=== PATIENT | male | born 1965 | race African-American/Black ===

== ENCOUNTER 2018-11-29 14:02 | Inpatient (IN) | payer OTHER ==
[2018-11-29 19:04] VITALS: BMI 33.2
--- NOTE | 2018-11-29 19:26 | HP ---
CIWA Score Nausea/Vomitin-No Nausea/No Vomiting Muscle Tremors: None Anxiety: 0-No Anxiety, at Ease Agitation: 0-Normal Activity Paroxysmal Sweats: No Perspiration Orientation: 0-Oriented Tacttile Disturbances: 0-None Auditory Disturbances: 0-None Visual Disturbances: 0-None Headache: 0-None Present CIWA-Ar Total Score: 0 - Admission Criteria OASAS Guidelines: Admission for Medically Managed Detox: Requires at least one of the followin. CIWA greater than 12 2. Seizures within the past 24 hours 3. Delirium tremens within the past 24 hours 4. Hallucinations within the past 24 hours 5. Acute intervention needed for co occurring medical disorder 6. Acute intervention needed for co occurring psychiatric disorder 7. Severe withdrawal that cannot be handled at a lower level of care (continued vomiting, continued diarrhea, abnormal vital signs) requiring intravenous medication and/or fluids 8. Admission [facility] Allergies/Adverse Reactions: Allergies Allergy/AdvReac Type Severity Reaction Status Date / Time No Known Allergies Allergy Verified 11/29/18 20:53 History of Present Illness: pt here requesting detox from crack cocaine , etoh , heroin . etoh : 2 nips/day denies tremors, seizures, blackouts , currently asymptomatic heroin : IVDU 10 bags/day in [facility] , legs, neck , feet , needles from the pharmacy , denies sharing on a regular basis " once or twice " , + re-using , abscess in the past , OD x 4 , Narcan by em[facility] , most recently summer 2017 . heroin since age 32 , in [facility] since 2 years ago [facility] , currently on 160 mg q d , latest taken yesterday . cocaine : 3 x20 /day denies ivdu currently , tried in the past tobacco : 1 ppd x 40 years Reference #: [id number] There are no results for the search terms that you entered. 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 PSHx : denies PSych : SAD , bipolar d/o , previously on Depakote and Risperidone SHx : homeless , past drug-related charges 17.5 years , was on parole , has court 01/17/19 driving w/ suspended license. Exam Limitations: No Limitations - Ebola screening Have you traveled outside of the country in the last 21 days: No Have you had contact with anyone from an Ebola affected area: No Have you been sick,other than usual withdrawal symptoms: No Do you have a fever: No - Review of Systems Constitutional: No Symptoms Reported EENT: reports: Other (myopia , does not have glasses , missing teeth upper) Respiratory: reports: No Symptoms reported, Other (states uses nasal spray) Cardiac: reports: No Symptoms Reported GI: reports: No Symptoms Reported : reports: No Symptoms Reported Musculoskeletal: reports: Back Pain, Joint Pain, Other (chronic neck pain) Integumentary: reports: See HPI Neuro: reports: No Symptoms reported Endocrine: reports: No Symptoms Reported Psychiatric: reports: Orientated x3 Patient History - Smoking Cessation Smoking history: Current every day smoker Have you smoked in the past 12 months: Yes Aproximately how many cigarettes per day: 20 Hx Chewing Tobacco Use: No Initiated information on smoking cessation: No - Substances Abused Heroin Route: Injection Frequency: Daily Amount used: 10 BAGS Age of first use: 32 Date of Last Use: 11/27/18 Crack Route: Smoking Frequency: Daily Amount used: Age of first use: 27 Date of Last Use: 11/27/18 Family Disease History - Family Disease History Family Disease History: Diabetes: Father (d. 2006 ), Mother (breast CA in remission ), CA: Mother, Other: Brother (3, A & W ), Sister (5 , A & W ) Admission Physical Exam [facility] - Vital Signs Vital Signs: Vital Signs - 24 hr 11/29/18 18:59 Temperature 98.6 F Pulse Rate 67 Respiratory 18 Rate Blood Pressure 145/89 - Physical General Appearance: Yes: No Apparent Distress, Disheveled HEENTM: Yes: EOMI, Hearing grossly Normal, Normocephalic, Normal Voice, Other ( missing upper teeth, poor dentition .) Respiratory: Yes: Chest Non-Tender, Lungs Clear, Normal Breath Sounds Neck: Yes: No masses,lesions,Nodules, Trachea in good position Cardiology: Yes: Regular Rhythm, Regular Rate, S1, S2 Abdominal: Yes: Normal Bowel Sounds, Non Tender, Soft, Protuberent Genitourinary: Yes: Within Normal Limits Back: Yes: Muscle Spasm Musculoskeletal: Yes: Joint Stiffness (sergei knees , LLE shoulder weakness 2/2 CVA), Other (R LE edema) Neurological: Yes: Fully Oriented, Motor Strength 5/5, Normal Mood/Affect Integumentary: Yes: Normal Color - Diagnostic (1) Opioid dependence on agonist therapy Current Visit: Yes Status: Acute (2) Cocaine dependence Current Visit: Yes Status: Chronic Qualifiers: Substance use status: uncomplicated Qualified Code(s): F14.20 - Cocaine dependence, uncomplicated (3) Tobacco dependence Current Visit: Yes Status: Acute (4) Old cerebrovascular accident (CVA) without late effect Current Visit: Yes Status: Acute (5) Pedal edema Current Visit: Yes Status: Acute BHS Breath Alcohol Content Breath Alcohol Content: 0 Urine Drug Screen - Results Drug Screen Negative: No Urine Drug Screen Results: JOANNA-Cocaine, OPI-Opiates, MTD-Methadone Inpatient Rehab Admission - Rehab Decision to Admit Inpatient rehab admission?: Yes - Initial Determination Are CD services needed?: Yes Free of communicable disease: Yes Not in need of hospitalization: Yes - Rehab Admission Criteria Previous failed treatment: Yes Poor recovery environment: Yes Comorbidities: Yes Lacks judgement: Yes Patient is meeting Inpatient Rehab admission criteria:: Yes
[2018-11-29] MEDS ORDERED: hydrOXYzine PAMOATE 25 MG CAPSULE (FP) PO PRN (19:44)
[2018-11-29] MEDS ORDERED: ACETAMINOPHEN 325 MG TABLET (FP) PO PRN (19:44)
[2018-11-29] MEDS ORDERED: guaiFENesin/D-METHORPHAN HB 10 ML UNIT-DOSE CUPS PO PRN (19:44)
[2018-11-29] MEDS ORDERED: MAGNESIUM HYDROX 2400MG/30ML ORAL SUSPENSION 30 ML CUP PO PRN (19:44)
[2018-11-29] MEDS ORDERED: MAGNESIUM CITRATE 300 ML BOTTLE PO PRN (19:44)
[2018-11-29] MEDS ORDERED: MAG HYDROX/AL HYDROX/SIMETH 30 ML UNIT-DOSE CUP PO PRN (19:44)
[2018-11-29] MEDS ORDERED: ATORVASTATIN CA 40 MG TABLET (FP) ONE (20:35)
[2018-11-29] MEDS ORDERED: RALTEGRAVIR POTASSIUM 400 MG TAB PO SCH (22:00)
[2018-11-29] MEDS: RIVAROXABAN 20 MG TABLET PO SCH (23:44)
[2018-11-29] MEDS: GABAPENTIN 400 MG CAPSULE (FP) PO SCH (23:44)
[2018-11-29] MEDS: THIAMINE HCL 100 MG TABLET (FP) PO SCH (23:44)
[2018-11-29] MEDS: NAPROXEN 375 MG TABLET (FP) PO SCH (23:45)
[2018-11-29] MEDS: RALTEGRAVIR POTASSIUM 400 MG TAB PO SCH (23:46)
[2018-11-29] MEDS: ATORVASTATIN CA 80 MG TABLET (FP) PO SCH (23:46)
[2018-11-29] MEDS ORDERED: TUBERCULIN PPD 5 TU/0.1ML VIAL ID ONE (23:55)
[2018-11-30] MEDS: GABAPENTIN 400 MG CAPSULE (FP) PO SCH ×3 (06:38→21:08)
[2018-11-30] MEDS ORDERED: METHADONE HCL 40 MG DISPERSABLE TABLET PO ONE (09:29)
[2018-11-30] MEDS ORDERED: PATIENT'S OWN MEDICATION (NON-FORMULARY) (Meloxicam [Meloxicam] 15 MG) PO SCH (10:00)
[2018-11-30 10:14] LABS: HEMATOCRIT 40.1 % (35.4-49); HEMOGLOBIN 13.4 GM/dL (11.7-16.9); MCH 30.7 pg (25.7-33.7); MCHC 33.3 g/dl (32.0-35.9); MEAN PLT VOLUME 8.7 fl (7.5-11.1); PLATELET COUNT 216 K/MM3 (134-434); RBC 4.36 M/mm3 (4.00-5.60); RDW 14.3 % (11.9-15.9); WHITE BLOOD COUNT 5.6 K/mm3 (4.0-10.0)
[2018-11-30] MEDS: P-EPHED 60MG/TRIPROLIDI 2.5MG TABLET PO PRN ×2 (10:44→21:10)
[2018-11-30] MEDS: PRENATAL VITAMINS W/ FOLIC ACID TABLET (FP) PO SCH (10:44)
[2018-11-30] MEDS: NAPROXEN 375 MG TABLET (FP) PO SCH ×2 (10:44→21:09)
[2018-11-30] MEDS: FUROSEMIDE 40 MG TABLET (FP) PO SCH (10:45)
[2018-11-30] MEDS: RALTEGRAVIR POTASSIUM 400 MG TAB PO SCH ×2 (10:47→21:09)
[2018-11-30 12:10] LABS: ALBUMIN 3.3 g/dl (3.4-5.0); ALK PHOS 132 U/L (45-117); ANION GAP 9 MMOL/L (8-16); BILIRUBIN,TOTAL 0.4 mg/dL (0.2-1); BLOOD UREA NITROGEN 11 mg/dL (7-18); CALCIUM 8.7 mg/dL (8.5-10.1); CHLORIDE 108 mmol/L (98-107); CO2 29 mmol/L (21-32); CREATININE 0.9 mg/dL (0.55-1.3); GLUCOSE,RANDOM 79 mg/dL (74-106); POTASSIUM 3.4 mmol/L (3.5-5.1); SGOT/AST 29 U/L (15-37); SGPT/ALT 22 U/L (13-61); SODIUM 145 mmol/L (136-145); TOT PROT 6.9 g/dl (6.4-8.2)
[2018-11-30] MEDS: EMTRICITABINE 200MG/TENOFOVIR 300MG PO SCH (12:40)
[2018-11-30] MEDS: RIVAROXABAN 20 MG TABLET PO SCH (18:18)
[2018-11-30 20:02] LABS: URINE APPEARANCE TURBID; URINE BILIRUBIN NEGATIVE (<2.0 mg/dL); URINE COLOR AMBER; URINE GLUCOSE (UA) NEGATIVE (NEGATIVE); URINE KETONE NEGATIVE (NEGATIVE); URINE LEUK ESTERASE NEGATIVE (NEGATIVE); URINE NITRITE NEGATIVE (NEGATIVE); URINE PROTEIN 1+ (NEGATIVE); URINE UROBILINOGEN 4.0 E.U/dl mg/dL (0.2-1.0)
[2018-11-30 20:11] LABS: AMORP URATES 4+ /hpf (NONE SEEN)
[2018-11-30 20:13] LABS: EPI CELLS RARE /HPF (FEW); URINE BACTERIA RARE /hpf (NONE SEEN); URINE MUCUS FEW
[2018-11-30] MEDS ORDERED: ATORVASTATIN CA 40 MG TABLET (FP) ONE (20:16)
[2018-11-30] MEDS: ATORVASTATIN CA 80 MG TABLET (FP) PO SCH (21:09)
[2018-11-30] MEDS: THIAMINE HCL 100 MG TABLET (FP) PO SCH (21:09)
[2018-12-01] MEDS: GABAPENTIN 400 MG CAPSULE (FP) PO SCH ×3 (06:48→21:06)
[2018-12-01] MEDS: METHADONE HCL 40 MG DISPERSABLE TABLET PO SCH (06:49)
[2018-12-01] MEDS: NAPROXEN 375 MG TABLET (FP) PO SCH ×2 (09:28→21:07)
[2018-12-01] MEDS: FUROSEMIDE 40 MG TABLET (FP) PO SCH (09:28)
[2018-12-01] MEDS: RALTEGRAVIR POTASSIUM 400 MG TAB PO SCH ×2 (09:28→21:06)
[2018-12-01] MEDS: EMTRICITABINE 200MG/TENOFOVIR 300MG PO SCH (09:28)
[2018-12-01] MEDS: PRENATAL VITAMINS W/ FOLIC ACID TABLET (FP) PO SCH (09:28)
--- NOTE | 2018-12-01 12:50 | PN ---
[facility] Progress Note Note: PT C/O HX CHRONIC PAIN-HANDS/LOWER BACK/HIPS/NECK. REPORTS USES PAIN PATCH AND HAS IT IN HIS PROPERTY IN [place]. WANTS TO CONTINUE IT HERE. PT USES WHEELCHAIR FOR AMBULATION. PT REPORTS HE HAS A PMD DR. MONROE CAMPOS(?SPEANGELICA) AT [facility] IN [place], [place] FOR MEDICAL MANAGEMENT. Vital Signs (72 hours) 11/29/18 11/29/18 11/30/18 18:59 23:33 00:30 Temperature 98.6 F 98.4 F Pulse Rate 67 74 Respiratory 18 18 20 Rate Blood Pressure 145/89 137/76 11/30/18 11/30/18 11/30/18 03:30 06:46 07:29 Temperature 97.4 F L 97.4 F L Pulse Rate 64 64 Respiratory 18 18 18 Rate Blood Pressure 143/77 143/77 11/30/18 12/01/18 12/01/18 10:00 00:30 03:30 Temperature Pulse Rate 72 Respiratory 18 18 Rate Blood Pressure 133/75 12/01/18 12/01/18 06:57 10:00 Temperature 97.3 F L Pulse Rate 75 71 Respiratory 20 Rate Blood Pressure 145/87 115/68 Laboratory Tests 11/30/18 11/30/18 11/30/18 08:30 08:30 08:30 WBC 5.6 RBC 4.36 Hgb 13.4 Hct 40.1 MCV 92.0 MCH 30.7 MCHC 33.3 RDW 14.3 Plt Count 216 MPV 8.7 Sodium 145 Potassium 3.4 L Chloride 108 H Carbon Dioxide 29 Anion Gap 9 BUN 11 Creatinine 0.9 Creat Clearance w eGFR > 60 Random Glucose 79 Calcium 8.7 Total Bilirubin 0.4 AST 29 ALT 22 Alkaline Phosphatase 132 H Total Protein 6.9 Albumin 3.3 L Urine Color Urine Appearance Urine pH Ur Specific [place] Urine Protein Urine Glucose (UA) Urine Ketones Urine Blood Urine Nitrite Urine Bilirubin Urine Urobilinogen Ur Leukocyte Esterase Urine WBC (Auto) Urine RBC (Auto) Ur Epithelial Cells Amorphous Urates Urine Bacteria Urine Mucus RPR Titer Nonreactive 11/30/18 15:40 WBC RBC Hgb Hct MCV MCH MCHC RDW Plt Count MPV Sodium Potassium Chloride Carbon Dioxide Anion Gap BUN Creatinine Creat Clearance w eGFR Random Glucose Calcium Total Bilirubin AST ALT Alkaline Phosphatase Total Protein Albumin Urine Color [place] Urine Appearance Turbid Urine pH 6.0 Ur Specific [place] 1.033 Urine Protein 1+ H Urine Glucose (UA) Negative Urine Ketones Negative Urine Blood Negative Urine Nitrite Negative Urine Bilirubin Negative Urine Urobilinogen 4.0 e.u/dl Ur Leukocyte Esterase Negative Urine WBC (Auto) None Urine RBC (Auto) None Ur Epithelial Cells Rare Amorphous Urates 4+ Urine Bacteria Rare Urine Mucus Few RPR Titer BORDERLINE HYPOKALEMIA K+ =3.4 ELEVATED ALK PHOS = 132 NAD PLAN:LIDOCAINE PATCH 5% APPLY DIRECTED. REPEAT CMP IN A.M
[2018-12-01] MEDS: LIDOCAINE 5% TOPICAL PATCH TP SCH (13:03)
[2018-12-01] MEDS: RIVAROXABAN 20 MG TABLET PO SCH (18:13)
[2018-12-01] MEDS: ATORVASTATIN CA 80 MG TABLET (FP) PO SCH (21:06)
[2018-12-01] MEDS: THIAMINE HCL 100 MG TABLET (FP) PO SCH (21:06)
[2018-12-01] MEDS: LIDOCAINE PATCH REMOVAL MC SCH (21:09)
[2018-12-02] MEDS: METHADONE HCL 40 MG DISPERSABLE TABLET PO SCH (06:42)
[2018-12-02] MEDS: GABAPENTIN 400 MG CAPSULE (FP) PO SCH ×3 (06:42→22:55)
[2018-12-02] MEDS: NAPROXEN 375 MG TABLET (FP) PO SCH ×2 (09:35→22:55)
[2018-12-02] MEDS: RALTEGRAVIR POTASSIUM 400 MG TAB PO SCH ×2 (09:36→22:56)
[2018-12-02] MEDS: FUROSEMIDE 40 MG TABLET (FP) PO SCH (09:36)
[2018-12-02] MEDS: PRENATAL VITAMINS W/ FOLIC ACID TABLET (FP) PO SCH (09:36)
[2018-12-02] MEDS: EMTRICITABINE 200MG/TENOFOVIR 300MG PO SCH (09:36)
[2018-12-02] MEDS: LIDOCAINE 5% TOPICAL PATCH TP SCH (09:37)
[2018-12-02 12:08] LABS: ALBUMIN 3.4 g/dl (3.4-5.0); ALK PHOS 128 U/L (45-117); ANION GAP 4 MMOL/L (8-16); BILIRUBIN,TOTAL 0.3 mg/dL (0.2-1); BLOOD UREA NITROGEN 19 mg/dL (7-18); CALCIUM 8.5 mg/dL (8.5-10.1); CHLORIDE 110 mmol/L (98-107); CO2 32 mmol/L (21-32); CREATININE 0.9 mg/dL (0.55-1.3); GLUCOSE,RANDOM 112 mg/dL (74-106); POTASSIUM 4.3 mmol/L (3.5-5.1); SGOT/AST 26 U/L (15-37); SGPT/ALT 20 U/L (13-61); SODIUM 146 mmol/L (136-145); TOT PROT 6.8 g/dl (6.4-8.2)
[2018-12-02] MEDS: RIVAROXABAN 20 MG TABLET PO SCH (17:58)
[2018-12-02] MEDS: P-EPHED 60MG/TRIPROLIDI 2.5MG TABLET PO PRN (22:54)
[2018-12-02] MEDS: MENTHOL/PHENOL 1 EACH UD MM PRN (22:54)
[2018-12-02] MEDS: THIAMINE HCL 100 MG TABLET (FP) PO SCH (22:55)
[2018-12-02] MEDS: LIDOCAINE PATCH REMOVAL MC SCH (22:55)
[2018-12-02] MEDS: ATORVASTATIN CA 80 MG TABLET (FP) PO SCH (22:55)
[2018-12-03] MEDS: METHADONE HCL 40 MG DISPERSABLE TABLET PO SCH (06:53)
[2018-12-03] MEDS: GABAPENTIN 400 MG CAPSULE (FP) PO SCH ×3 (06:54→21:01)
[2018-12-03] MEDS: FUROSEMIDE 40 MG TABLET (FP) PO SCH (09:19)
[2018-12-03] MEDS: RALTEGRAVIR POTASSIUM 400 MG TAB PO SCH ×2 (09:19→21:01)
[2018-12-03] MEDS: NAPROXEN 375 MG TABLET (FP) PO SCH ×2 (09:19→21:01)
[2018-12-03] MEDS: PRENATAL VITAMINS W/ FOLIC ACID TABLET (FP) PO SCH (09:19)
[2018-12-03] MEDS: LIDOCAINE 5% TOPICAL PATCH TP SCH (09:20)
[2018-12-03] MEDS: EMTRICITABINE 200MG/TENOFOVIR 300MG PO SCH (09:20)
[2018-12-03] MEDS: RIVAROXABAN 20 MG TABLET PO SCH (17:58)
[2018-12-03] MEDS: ATORVASTATIN CA 80 MG TABLET (FP) PO SCH (21:00)
[2018-12-03] MEDS: THIAMINE HCL 100 MG TABLET (FP) PO SCH (21:01)
[2018-12-03] MEDS: LIDOCAINE PATCH REMOVAL MC SCH (21:02)
[2018-12-03] MEDS: LOPERAMIDE HCL 2 MG CAPSULE PO PRN (23:38)
[2018-12-04] MEDS: LOPERAMIDE HCL 2 MG CAPSULE PO PRN ×2 (06:32→21:48)
[2018-12-04] MEDS: METHADONE HCL 40 MG DISPERSABLE TABLET PO SCH (06:32)
[2018-12-04] MEDS: GABAPENTIN 400 MG CAPSULE (FP) PO SCH ×3 (06:32→21:44)
[2018-12-04] MEDS: FUROSEMIDE 40 MG TABLET (FP) PO SCH (09:24)
[2018-12-04] MEDS: PRENATAL VITAMINS W/ FOLIC ACID TABLET (FP) PO SCH (09:24)
[2018-12-04] MEDS: RALTEGRAVIR POTASSIUM 400 MG TAB PO SCH ×2 (09:24→21:44)
[2018-12-04] MEDS: NAPROXEN 375 MG TABLET (FP) PO SCH ×2 (09:24→21:46)
[2018-12-04] MEDS: LIDOCAINE 5% TOPICAL PATCH TP SCH (09:25)
[2018-12-04] MEDS: EMTRICITABINE 200MG/TENOFOVIR 300MG PO SCH (09:25)
[2018-12-04] MEDS: RIVAROXABAN 20 MG TABLET PO SCH (18:46)
[2018-12-04] MEDS: THIAMINE HCL 100 MG TABLET (FP) PO SCH (21:44)
[2018-12-04] MEDS: ATORVASTATIN CA 80 MG TABLET (FP) PO SCH (21:44)
[2018-12-04] MEDS: LIDOCAINE PATCH REMOVAL MC SCH (21:46)
[2018-12-05] MEDS: METHADONE HCL 40 MG DISPERSABLE TABLET PO SCH (06:32)
[2018-12-05] MEDS: GABAPENTIN 400 MG CAPSULE (FP) PO SCH ×3 (06:32→21:04)
[2018-12-05] MEDS: NAPROXEN 375 MG TABLET (FP) PO SCH (10:02)
[2018-12-05] MEDS: RALTEGRAVIR POTASSIUM 400 MG TAB PO SCH ×2 (10:02→21:04)
[2018-12-05] MEDS: PRENATAL VITAMINS W/ FOLIC ACID TABLET (FP) PO SCH (10:02)
[2018-12-05] MEDS: LIDOCAINE 5% TOPICAL PATCH TP SCH (10:03)
[2018-12-05] MEDS: EMTRICITABINE 200MG/TENOFOVIR 300MG PO SCH (10:03)
[2018-12-05] MEDS: FUROSEMIDE 40 MG TABLET (FP) PO SCH (10:03)
[2018-12-05] MEDS: LOPERAMIDE HCL 2 MG CAPSULE PO PRN (10:04)
[2018-12-05] MEDS ORDERED: BISMUTH SUBSALICYLATE 524 MG/30 ML UD PO PRN (14:14)
--- NOTE | 2018-12-05 14:18 | PN ---
[facility] Progress Note Note: NURSE REPORTS PT WITH DIARRHEA AND GAS. PT ON IMODIUM AND REPORTS NOT EFFECTIVE. PT C/O CHRONIC BILAT. LEG EDEMA. REPORTS HE WAS SLEEPING IN HIS CAR. ALSO WANTS TO RESTART HIS HOME MED- MELOXICAM IN SECURITY PROPERTY. Vital Signs - 24 hr 12/05/18 12/05/18 12/05/18 00:30 03:30 06:34 Temperature 97.9 F Pulse Rate 65 Respiratory 18 18 18 Rate Blood Pressure 141/66 12/05/18 10:00 Temperature Pulse Rate 63 Respiratory Rate Blood Pressure 107/65 Laboratory Tests 11/30/18 11/30/18 11/30/18 08:30 08:30 08:30 WBC 5.6 RBC 4.36 Hgb 13.4 Hct 40.1 MCV 92.0 MCH 30.7 MCHC 33.3 RDW 14.3 Plt Count 216 MPV 8.7 Sodium 145 Potassium 3.4 L Chloride 108 H Carbon Dioxide 29 Anion Gap 9 BUN 11 Creatinine 0.9 Creat Clearance w eGFR > 60 Random Glucose 79 Calcium 8.7 Total Bilirubin 0.4 AST 29 ALT 22 Alkaline Phosphatase 132 H Total Protein 6.9 Albumin 3.3 L Urine Color Urine Appearance Urine pH Ur Specific [place] Urine Protein Urine Glucose (UA) Urine Ketones Urine Blood Urine Nitrite Urine Bilirubin Urine Urobilinogen Ur Leukocyte Esterase Urine WBC (Auto) Urine RBC (Auto) Ur Epithelial Cells Amorphous Urates Urine Bacteria Urine Mucus RPR Titer Nonreactive 11/30/18 12/02/18 15:40 10:00 WBC RBC Hgb Hct MCV MCH MCHC RDW Plt Count MPV Sodium 146 H Potassium 4.3 Chloride 110 H Carbon Dioxide 32 Anion Gap 4 L BUN 19 H Creatinine 0.9 Creat Clearance w eGFR > 60 Random Glucose 112 H Calcium 8.5 Total Bilirubin 0.3 AST 26 ALT 20 Alkaline Phosphatase 128 H Total Protein 6.8 Albumin 3.4 Urine Color [place] Urine Appearance Turbid Urine pH 6.0 Ur Specific [place] 1.033 Urine Protein 1+ H Urine Glucose (UA) Negative Urine Ketones Negative Urine Blood Negative Urine Nitrite Negative Urine Bilirubin Negative Urine Urobilinogen 4.0 e.u/dl Ur Leukocyte Esterase Negative Urine WBC (Auto) None Urine RBC (Auto) None Ur Epithelial Cells Rare Amorphous Urates 4+ Urine Bacteria Rare Urine Mucus Few RPR Titer A:DIARRHEA PLAN:D/C IMODIUM START PEPTO-BISMOL 524 MG PO BID DIRECTED. D/C NAPROSYN ELEVATE LEGS WHILE IN BED. RESTART MELOXICAM WHEN OBTAINED AND VERIFIED IN OUR PHARMACY.
[2018-12-05] MEDS: RIVAROXABAN 20 MG TABLET PO SCH (18:10)
[2018-12-05] MEDS: ATORVASTATIN CA 80 MG TABLET (FP) PO SCH (21:04)
[2018-12-05] MEDS: LIDOCAINE PATCH REMOVAL MC SCH (21:04)
[2018-12-05] MEDS: THIAMINE HCL 100 MG TABLET (FP) PO SCH (21:04)
[2018-12-05] MEDS: BISMUTH SUBSALICYLATE 262 MG/15 ML BTL PO PRN (21:05)
[2018-12-06] MEDS: METHADONE HCL 40 MG DISPERSABLE TABLET PO SCH (06:39)
[2018-12-06] MEDS: GABAPENTIN 400 MG CAPSULE (FP) PO SCH ×3 (06:39→21:04)
[2018-12-06] MEDS: EMTRICITABINE 200MG/TENOFOVIR 300MG PO SCH (09:30)
[2018-12-06] MEDS: LIDOCAINE 5% TOPICAL PATCH TP SCH (09:30)
[2018-12-06] MEDS: PRENATAL VITAMINS W/ FOLIC ACID TABLET (FP) PO SCH (09:30)
[2018-12-06] MEDS: RALTEGRAVIR POTASSIUM 400 MG TAB PO SCH ×2 (09:30→21:05)
[2018-12-06] MEDS: FUROSEMIDE 40 MG TABLET (FP) PO SCH (09:31)
[2018-12-06] MEDS ORDERED: SULFAMETHOXAZOLE/TRIMETHOPRIM 800MG/160MG D.S. TABLET PO ONE (13:15)
--- NOTE | 2018-12-06 14:29 | PN ---
[facility] Progress Note Note: PT C/O CHRONIC EDEMA AND PAIN TO BOTH LOWER LEGS THAT IS OOZING. PT REPORTS THIS HAS BEEN HAPPENING ON THE STREET A FEW DAYS BEFORE ADMISSION HERE. Vital Signs - 24 hr 12/06/18 12/06/18 12/06/18 03:30 06:42 10:00 Temperature 97.2 F L Pulse Rate 67 59 L Respiratory 20 20 Rate Blood Pressure 142/80 104/62 Laboratory Tests 11/30/18 11/30/18 11/30/18 08:30 08:30 08:30 WBC 5.6 RBC 4.36 Hgb 13.4 Hct 40.1 MCV 92.0 MCH 30.7 MCHC 33.3 RDW 14.3 Plt Count 216 MPV 8.7 Sodium 145 Potassium 3.4 L Chloride 108 H Carbon Dioxide 29 Anion Gap 9 BUN 11 Creatinine 0.9 Creat Clearance w eGFR > 60 Random Glucose 79 Calcium 8.7 Total Bilirubin 0.4 AST 29 ALT 22 Alkaline Phosphatase 132 H Total Protein 6.9 Albumin 3.3 L Urine Color Urine Appearance Urine pH Ur Specific [place] Urine Protein Urine Glucose (UA) Urine Ketones Urine Blood Urine Nitrite Urine Bilirubin Urine Urobilinogen Ur Leukocyte Esterase Urine WBC (Auto) Urine RBC (Auto) Ur Epithelial Cells Amorphous Urates Urine Bacteria Urine Mucus RPR Titer Nonreactive 11/30/18 12/02/18 15:40 10:00 WBC RBC Hgb Hct MCV MCH MCHC RDW Plt Count MPV Sodium 146 H Potassium 4.3 Chloride 110 H Carbon Dioxide 32 Anion Gap 4 L BUN 19 H Creatinine 0.9 Creat Clearance w eGFR > 60 Random Glucose 112 H Calcium 8.5 Total Bilirubin 0.3 AST 26 ALT 20 Alkaline Phosphatase 128 H Total Protein 6.8 Albumin 3.4 Urine Color [place] Urine Appearance Turbid Urine pH 6.0 Ur Specific [place] 1.033 Urine Protein 1+ H Urine Glucose (UA) Negative Urine Ketones Negative Urine Blood Negative Urine Nitrite Negative Urine Bilirubin Negative Urine Urobilinogen 4.0 e.u/dl Ur Leukocyte Esterase Negative Urine WBC (Auto) None Urine RBC (Auto) None Ur Epithelial Cells Rare Amorphous Urates 4+ Urine Bacteria Rare Urine Mucus Few RPR Titer LOWER EXTREMITIES: BILATERAL ANKLE/FEET EDEMA WITH REDNESS AN PAIN ON PALPATION. OOZING WITH CLEAR DRAINAGE TO RIGHT LATERAL ANKLE AREA. PEDAL PULSES: FAINT-UNABLE TO APPRECIATE DUE TO SEVERE LEG EDEMA. A:CHRONIC LEG EDEMA RIGHT>LEFT LEG CELLULITIS, BILATERAL PLAN:BACTRIM DS 1 TAB PO BID, FIRST DOSE NOW. X 10 DAYS CONTINUE TO ELEVATE LEGS WHILE IN BED.
[2018-12-06] MEDS ORDERED: BACITRACIN 0.9 GM PACKET TP ONE (15:15)
[2018-12-06] MEDS: RIVAROXABAN 20 MG TABLET PO SCH (17:50)
[2018-12-06] MEDS: BACITRACIN 0.9 GM PACKET TP SCH (21:04)
[2018-12-06] MEDS: SULFAMETHOXAZOLE/TRIMETHOPRIM 800MG/160MG D.S. TABLET PO SCH (21:04)
[2018-12-06] MEDS: ATORVASTATIN CA 80 MG TABLET (FP) PO SCH (21:05)
[2018-12-06] MEDS: LIDOCAINE PATCH REMOVAL MC SCH ×2 (21:05→22:04)
[2018-12-06] MEDS: THIAMINE HCL 100 MG TABLET (FP) PO SCH (22:04)
[2018-12-07] MEDS: GABAPENTIN 400 MG CAPSULE (FP) PO SCH ×3 (06:36→21:04)
[2018-12-07] MEDS: METHADONE HCL 40 MG DISPERSABLE TABLET PO SCH (07:05)
[2018-12-07] MEDS: P-EPHED 60MG/TRIPROLIDI 2.5MG TABLET PO PRN (07:11)
[2018-12-07] MEDS: LIDOCAINE 5% TOPICAL PATCH TP SCH (09:58)
[2018-12-07] MEDS: PRENATAL VITAMINS W/ FOLIC ACID TABLET (FP) PO SCH (09:58)
[2018-12-07] MEDS: FUROSEMIDE 40 MG TABLET (FP) PO SCH (09:58)
[2018-12-07] MEDS: BACITRACIN 0.9 GM PACKET TP SCH ×2 (09:58→21:03)
[2018-12-07] MEDS: RALTEGRAVIR POTASSIUM 400 MG TAB PO SCH ×2 (09:58→21:04)
[2018-12-07] MEDS: SULFAMETHOXAZOLE/TRIMETHOPRIM 800MG/160MG D.S. TABLET PO SCH ×2 (09:58→21:04)
[2018-12-07] MEDS: EMTRICITABINE 200MG/TENOFOVIR 300MG PO SCH (09:59)
[2018-12-07] MEDS: RIVAROXABAN 20 MG TABLET PO SCH (18:10)
[2018-12-07] MEDS: ATORVASTATIN CA 80 MG TABLET (FP) PO SCH (21:04)
[2018-12-07] MEDS: LIDOCAINE PATCH REMOVAL MC SCH (21:04)
[2018-12-07] MEDS: THIAMINE HCL 100 MG TABLET (FP) PO SCH (21:04)
[2018-12-08] MEDS: GABAPENTIN 400 MG CAPSULE (FP) PO SCH ×3 (06:48→21:03)
[2018-12-08] MEDS: METHADONE HCL 40 MG DISPERSABLE TABLET PO SCH (06:50)
[2018-12-08] MEDS: RALTEGRAVIR POTASSIUM 400 MG TAB PO SCH ×2 (09:40→21:03)
[2018-12-08] MEDS: SULFAMETHOXAZOLE/TRIMETHOPRIM 800MG/160MG D.S. TABLET PO SCH ×2 (09:40→21:03)
[2018-12-08] MEDS: FUROSEMIDE 40 MG TABLET (FP) PO SCH (09:40)
[2018-12-08] MEDS: PRENATAL VITAMINS W/ FOLIC ACID TABLET (FP) PO SCH (09:40)
[2018-12-08] MEDS: BACITRACIN 0.9 GM PACKET TP SCH ×2 (09:41→21:03)
[2018-12-08] MEDS: LIDOCAINE 5% TOPICAL PATCH TP SCH (09:41)
[2018-12-08] MEDS: EMTRICITABINE 200MG/TENOFOVIR 300MG PO SCH (09:41)
[2018-12-08] MEDS: RIVAROXABAN 20 MG TABLET PO SCH (17:47)
[2018-12-08] MEDS: THIAMINE HCL 100 MG TABLET (FP) PO SCH (21:03)
[2018-12-08] MEDS: ATORVASTATIN CA 80 MG TABLET (FP) PO SCH (21:03)
[2018-12-08] MEDS: LIDOCAINE PATCH REMOVAL MC SCH (21:08)
[2018-12-09] MEDS: GABAPENTIN 400 MG CAPSULE (FP) PO SCH ×3 (06:21→21:09)
[2018-12-09] MEDS: METHADONE HCL 40 MG DISPERSABLE TABLET PO SCH (06:22)
[2018-12-09] MEDS: PRENATAL VITAMINS W/ FOLIC ACID TABLET (FP) PO SCH (09:43)
[2018-12-09] MEDS: RALTEGRAVIR POTASSIUM 400 MG TAB PO SCH ×2 (09:43→21:09)
[2018-12-09] MEDS: SULFAMETHOXAZOLE/TRIMETHOPRIM 800MG/160MG D.S. TABLET PO SCH ×2 (09:44→21:09)
[2018-12-09] MEDS: BACITRACIN 0.9 GM PACKET TP SCH ×2 (09:44→21:10)
[2018-12-09] MEDS: FUROSEMIDE 40 MG TABLET (FP) PO SCH (09:44)
[2018-12-09] MEDS: NICOTINE POLACRILEX 2 MG GUM BC PRN (10:44)
[2018-12-09] MEDS: LIDOCAINE 5% TOPICAL PATCH TP SCH (10:53)
[2018-12-09] MEDS: EMTRICITABINE 200MG/TENOFOVIR 300MG PO SCH (11:17)
[2018-12-09] MEDS: RIVAROXABAN 20 MG TABLET PO SCH (18:02)
[2018-12-09] MEDS: ATORVASTATIN CA 80 MG TABLET (FP) PO SCH (21:09)
[2018-12-09] MEDS: THIAMINE HCL 100 MG TABLET (FP) PO SCH (21:10)
[2018-12-09] MEDS: LIDOCAINE PATCH REMOVAL MC SCH (21:10)
[2018-12-10] MEDS: METHADONE HCL 40 MG DISPERSABLE TABLET PO SCH (06:33)
[2018-12-10] MEDS: GABAPENTIN 400 MG CAPSULE (FP) PO SCH ×3 (06:33→21:08)
[2018-12-10] MEDS: BACITRACIN 0.9 GM PACKET TP SCH ×2 (09:36→21:08)
[2018-12-10] MEDS: LIDOCAINE 5% TOPICAL PATCH TP SCH (09:36)
[2018-12-10] MEDS: PRENATAL VITAMINS W/ FOLIC ACID TABLET (FP) PO SCH (09:36)
[2018-12-10] MEDS: RALTEGRAVIR POTASSIUM 400 MG TAB PO SCH ×2 (09:36→21:07)
[2018-12-10] MEDS: SULFAMETHOXAZOLE/TRIMETHOPRIM 800MG/160MG D.S. TABLET PO SCH ×2 (09:36→21:08)
[2018-12-10] MEDS: FUROSEMIDE 40 MG TABLET (FP) PO SCH (09:36)
[2018-12-10] MEDS: EMTRICITABINE 200MG/TENOFOVIR 300MG PO SCH (09:37)
[2018-12-10] MEDS: MENTHOL/PHENOL 1 EACH UD MM PRN (09:40)
[2018-12-10] MEDS: RIVAROXABAN 20 MG TABLET PO SCH (17:09)
[2018-12-10] MEDS: ATORVASTATIN CA 80 MG TABLET (FP) PO SCH (21:07)
[2018-12-10] MEDS: THIAMINE HCL 100 MG TABLET (FP) PO SCH (21:07)
[2018-12-10] MEDS: MELATONIN 5 MG TABLETS PO PRN (21:08)
[2018-12-10] MEDS: NICOTINE POLACRILEX 2 MG GUM BC PRN (21:08)
[2018-12-10] MEDS: LIDOCAINE PATCH REMOVAL MC SCH (21:10)
[2018-12-11] MEDS: GABAPENTIN 400 MG CAPSULE (FP) PO SCH ×3 (06:36→21:02)
[2018-12-11] MEDS: METHADONE HCL 40 MG DISPERSABLE TABLET PO SCH (06:37)
[2018-12-11] MEDS: SULFAMETHOXAZOLE/TRIMETHOPRIM 800MG/160MG D.S. TABLET PO SCH ×2 (10:03→21:02)
[2018-12-11] MEDS: PRENATAL VITAMINS W/ FOLIC ACID TABLET (FP) PO SCH (10:03)
[2018-12-11] MEDS: FUROSEMIDE 40 MG TABLET (FP) PO SCH (10:03)
[2018-12-11] MEDS: LIDOCAINE 5% TOPICAL PATCH TP SCH (10:03)
[2018-12-11] MEDS: RALTEGRAVIR POTASSIUM 400 MG TAB PO SCH ×2 (10:03→21:02)
[2018-12-11] MEDS: EMTRICITABINE 200MG/TENOFOVIR 300MG PO SCH (10:03)
[2018-12-11] MEDS: BACITRACIN 0.9 GM PACKET TP SCH ×2 (10:03→21:02)
[2018-12-11] MEDS: NICOTINE POLACRILEX 2 MG GUM BC PRN ×2 (10:04→21:04)
[2018-12-11] MEDS: RIVAROXABAN 20 MG TABLET PO SCH (17:10)
[2018-12-11] MEDS: ATORVASTATIN CA 80 MG TABLET (FP) PO SCH (21:02)
[2018-12-11] MEDS: THIAMINE HCL 100 MG TABLET (FP) PO SCH (21:02)
[2018-12-11] MEDS: P-EPHED 60MG/TRIPROLIDI 2.5MG TABLET PO PRN (21:02)
[2018-12-11] MEDS: LIDOCAINE PATCH REMOVAL MC SCH (21:03)
[2018-12-11] MEDS: MELATONIN 5 MG TABLETS PO PRN (21:03)
[2018-12-12] MEDS: METHADONE HCL 40 MG DISPERSABLE TABLET PO SCH (06:43)
[2018-12-12] MEDS: GABAPENTIN 400 MG CAPSULE (FP) PO SCH ×3 (06:43→21:03)
[2018-12-12] MEDS: RALTEGRAVIR POTASSIUM 400 MG TAB PO SCH ×2 (10:02→21:04)
[2018-12-12] MEDS: BACITRACIN 0.9 GM PACKET TP SCH ×2 (10:02→21:04)
[2018-12-12] MEDS: PRENATAL VITAMINS W/ FOLIC ACID TABLET (FP) PO SCH (10:02)
[2018-12-12] MEDS: SULFAMETHOXAZOLE/TRIMETHOPRIM 800MG/160MG D.S. TABLET PO SCH ×2 (10:02→21:04)
[2018-12-12] MEDS: EMTRICITABINE 200MG/TENOFOVIR 300MG PO SCH (10:02)
[2018-12-12] MEDS: FUROSEMIDE 40 MG TABLET (FP) PO SCH (10:03)
[2018-12-12] MEDS: LIDOCAINE 5% TOPICAL PATCH TP SCH (10:03)
[2018-12-12] MEDS: NICOTINE POLACRILEX 2 MG GUM BC PRN ×2 (13:52→21:05)
[2018-12-12] MEDS: RIVAROXABAN 20 MG TABLET PO SCH (19:08)
[2018-12-12] MEDS: ATORVASTATIN CA 80 MG TABLET (FP) PO SCH (21:04)
[2018-12-12] MEDS: LIDOCAINE PATCH REMOVAL MC SCH (21:04)
[2018-12-12] MEDS: THIAMINE HCL 100 MG TABLET (FP) PO SCH (21:04)
[2018-12-13] MEDS ORDERED: METHADONE HCL 40 MG DISPERSABLE TABLET PO SCH (06:00)
[2018-12-13] MEDS: GABAPENTIN 400 MG CAPSULE (FP) PO SCH (06:33)
[2018-12-13 06:39] VITALS: BP 146/93; PULSE 75; TEMP 97
[2018-12-13] MEDS: SULFAMETHOXAZOLE/TRIMETHOPRIM 800MG/160MG D.S. TABLET PO SCH (09:41)
[2018-12-13] MEDS: EMTRICITABINE 200MG/TENOFOVIR 300MG PO SCH (09:41)
[2018-12-13] MEDS: FUROSEMIDE 40 MG TABLET (FP) PO SCH (09:41)
[2018-12-13] MEDS: PRENATAL VITAMINS W/ FOLIC ACID TABLET (FP) PO SCH (09:41)
[2018-12-13] MEDS: RALTEGRAVIR POTASSIUM 400 MG TAB PO SCH (09:41)
[2018-12-13] MEDS: BACITRACIN 0.9 GM PACKET TP SCH (09:42)
[2018-12-13] MEDS: LIDOCAINE 5% TOPICAL PATCH TP SCH (09:43)
[2018-12-13] MEDS: BISMUTH SUBSALICYLATE 262 MG/15 ML BTL PO PRN (09:43)
--- NOTE | 2018-12-13 09:58 | PN ---
[facility] Progress Note Note: PT COMPLETED REHAB AND DISCHARGED TODAY. PT REFERRED BACK TO [facility] AT [facility] [place], [place]. PT REPORTS HE HAS PRIMARY CARE AT [facility] AND HAS ALL HIS MEDS IN [place]. ALET O X 3. AMBULATING WELL WITH ASSISTANCE OF WALKER. Home Medications Medication Instructions Recorded Atorvastatin Ca [Lipitor] 80 mg PO HS 11/29/18 Emtricitabine/Tenofovir (Tdf) 1 each PO DAILY 11/29/18 [Truvada 200 mg-300 mg Tablet] Furosemide [Lasix] 40 mg PO DAILY 11/29/18 Gabapentin 800 mg PO TID 11/29/18 Meloxicam 15 mg PO DAILY 11/29/18 Raltegravir Potassium [Isentress] 400 mg PO DAILY 11/29/18 Rivaroxaban [Xarelto -] 20 mg PO DAILY 11/29/18 Laboratory Tests 11/30/18 11/30/18 11/30/18 08:30 08:30 08:30 WBC 5.6 RBC 4.36 Hgb 13.4 Hct 40.1 MCV 92.0 MCH 30.7 MCHC 33.3 RDW 14.3 Plt Count 216 MPV 8.7 Sodium 145 Potassium 3.4 L Chloride 108 H Carbon Dioxide 29 Anion Gap 9 BUN 11 Creatinine 0.9 Creat Clearance w eGFR > 60 Random Glucose 79 Calcium 8.7 Total Bilirubin 0.4 AST 29 ALT 22 Alkaline Phosphatase 132 H Total Protein 6.9 Albumin 3.3 L Urine Color Urine Appearance Urine pH Ur Specific [place] Urine Protein Urine Glucose (UA) Urine Ketones Urine Blood Urine Nitrite Urine Bilirubin Urine Urobilinogen Ur Leukocyte Esterase Urine WBC (Auto) Urine RBC (Auto) Ur Epithelial Cells Amorphous Urates Urine Bacteria Urine Mucus RPR Titer Nonreactive 11/30/18 12/02/18 15:40 10:00 WBC RBC Hgb Hct MCV MCH MCHC RDW Plt Count MPV Sodium 146 H Potassium 4.3 Chloride 110 H Carbon Dioxide 32 Anion Gap 4 L BUN 19 H Creatinine 0.9 Creat Clearance w eGFR > 60 Random Glucose 112 H Calcium 8.5 Total Bilirubin 0.3 AST 26 ALT 20 Alkaline Phosphatase 128 H Total Protein 6.8 Albumin 3.4 Urine Color [place] Urine Appearance Turbid Urine pH 6.0 Ur Specific [place] 1.033 Urine Protein 1+ H Urine Glucose (UA) Negative Urine Ketones Negative Urine Blood Negative Urine Nitrite Negative Urine Bilirubin Negative Urine Urobilinogen 4.0 e.u/dl Ur Leukocyte Esterase Negative Urine WBC (Auto) None Urine RBC (Auto) None Ur Epithelial Cells Rare Amorphous Urates 4+ Urine Bacteria Rare Urine Mucus Few RPR Titer Vital Signs (72 hours) 12/11/18 12/11/18 12/11/18 00:30 03:30 06:44 Temperature 97.8 F Pulse Rate 74 Respiratory 18 18 18 Rate Blood Pressure 144/85 12/11/18 12/11/18 12/12/18 09:15 21:00 00:30 Temperature Pulse Rate 71 69 Respiratory 18 18 18 Rate Blood Pressure 128/61 127/60 12/12/18 12/12/18 12/13/18 06:56 10:00 03:30 Temperature 97.8 F Pulse Rate 73 73 Respiratory 18 18 Rate Blood Pressure 131/80 123/73 12/13/18 06:38 Temperature 97.0 F L Pulse Rate 75 Respiratory 20 Rate Blood Pressure 146/93 NAD MEDICALLY STABLE PLAN:FOLLOW UP WITH [facility] FOLLOW UP WITH PCP AT [facility] WITHIN 1-2 WEEKS AFTER DISCHARGE ON AT 11:00.
== END 2018-12-13 09:50 | disposition home or self-care (01) | DRG 772 ==
LOC: YASAS 14:02 → Y5N 20:23
PROVIDERS: ADMIT Neuromusculoskeletal Medicine & OMM; ATTEND Neuromusculoskeletal Medicine & OMM
PROC: HZ42ZZZ Group Counseling for Substance Abuse Treatment, Cognitive-Behavioral (ICD-10-PCS; principal; 2018-11-29)
DX: F10.20 Alcohol dependence, uncomplicated (principal); F14.20 Cocaine dependence, uncomplicated; F17.210 Nicotine dependence, cigarettes, uncomplicated; F31.9 Bipolar disorder, unspecified; F25.9 Schizoaffective disorder, unspecified; L03.115 Cellulitis of right lower limb; L03.116 Cellulitis of left lower limb; R60.0 Localized edema; R19.7 Diarrhea, unspecified; Z86.73 Personal history of transient ischemic attack (TIA), and cerebral infarction without residual deficits; Z86.718 Personal history of other venous thrombosis and embolism; Z79.01 Long term (current) use of anticoagulants; Z59.0 Homelessness
CPT/HCPCS: 36415; 80053; 81003; 81015; 85027; 86593